=== PATIENT | female | born 1980 | race Caucasian/White ===

== ENCOUNTER 2020-11-11 16:56 | Emergency (ER) | payer MEDICAID ==
[~2020-11-11] VITALS: Ht 170.2 cm; Wt 117.7 kg
[2020-11-11 16:56] VITALS: BP 99/56
--- NOTE | 2020-11-11 16:56 | NUR ---
BIBA TO BED 2
[2020-11-11] MEDS ORDERED: cefTRIAXone 1,000 MG in DEXT 5% MINI-BAG PLUS 50 ML IV ONE (17:15)
[2020-11-11] MEDS ORDERED: NACL 0.9% 1,000 ML IV SCH (17:15)
[2020-11-11] MEDS ORDERED: KETOROLAC 30 MG/ML VIAL IVP ONE (17:15)
--- NOTE | 2020-11-11 17:24 | NUR ---
JOSE A SWAB DONE. HANDED TO BELLA FOREMAN.
--- NOTE | 2020-11-11 17:45 | NUR ---
PT REFUSING ALL MEDICATIONS AND TREATMENT. WISHES TO LEAVE AGAINST MEDICAL ADVISE.
[2020-11-11 18:07] VITALS: BP 99/56
--- NOTE | 2020-11-11 18:08 | NUR ---
Patient does not wish to proceed with medical care recommended by DR BOND. Patient given information related to possible complications, up to and including , which could occur as a result of leaving hospital at this time. Patient verbalizes understanding of risks involved leaving against medical advice. Patient has signed AMA form.
== END 2020-11-11 18:08 | disposition home or self-care (01) ==
LOC: MED 16:56
DX: L03.115 Cellulitis of right lower limb (principal); Z20.822 Contact with and (suspected) exposure to COVID-19; L03.116 Cellulitis of left lower limb; E11.9 Type 2 diabetes mellitus without complications; F17.200 Nicotine dependence, unspecified, uncomplicated; F11.90 Opioid use, unspecified, uncomplicated; Z98.890 Other specified postprocedural states
CPT/HCPCS: 93005; 99284